=== PATIENT | female | born 1980 | race Caucasian/White ===

== ENCOUNTER 2019-03-01 06:52 | Emergency (ER) | payer OTHER ==
[~2019-03-01] VITALS: Ht 165.1 cm; Wt 72.6 kg
[2019-03-01 07:13] LABS: ABSOLUTE BASOPHILS 0.1 thou/uL (0.0-0.2); ABSOLUTE EOSINOPHILS 0.2 thou/uL (0.0-0.7); ABSOLUTE LYMPHOCYTES 2.6 thou/uL (0.8-5.3); ABSOLUTE MONOCYTES 0.7 thou/uL (0.0-1.2); ABSOLUTE NEUTROPHILS 4.5 thou/uL (1.6-8.1); BASOPHILS 1.2 %; EOSINOPHILS 2.8 %; HEMATOCRIT 39.6 % (37.0-47.0); HEMOGLOBIN 13.2 gm/dL (12.0-15.0); LYMPHOCYTES 31.6 %; MCH 30.5 pg (26.0-34.0); MCHC 33.3 g/dL (28.0-37.0); MCV 91.7 fL (80.0-100.0); MONOCYTES 8.8 %; MPV 6.9 fl. (7.2-11.1); NUCLEATED RBCS 0 /100WBC; PLATELET COUNT* 350 thou/uL (150-400); POLYS 55.6 %; RBC 4.32 mil/uL (4.20-5.00); WBC 8.2 thou/uL (4.0-11.0)
[2019-03-01 07:24] LABS: ALBUMIN 3.1 g/dL (3.4-5.0); CALCIUM 8.3 mg/dL (8.5-10.1); CREATININE 0.8 mg/dL (0.6-1.3); TOTAL BILIRUBIN 0.2 mg/dL (<0.1-1.0); TOTAL PROTEIN 6.9 g/dL (6.4-8.2)
[2019-03-01 07:50] LABS: URINE BILIRUBIN NEGATIVE (Negative); URINE BLOOD 3+ (Negative); URINE CLARITY CLEAR; URINE COLOR YELLOW; URINE GLUCOSE-RANDOM NEGATIVE (Negative); URINE KETONES NEGATIVE (Negative); URINE LEUKOCYTES-REFLEX TRACE (Negative); URINE NITRITE-REFLEX NEGATIVE (Negative); URINE PROTEIN NEGATIVE (Negative); URINE SPECIFIC GRAVITY <= 1.005 (1.005-1.030); URINE UROBILINOGEN 0.2 E.U./dl (0.2-1.0)
[2019-03-01 07:57] LABS: SQUAMOUS >10 Many /LPF (0-3)
[2019-03-01 07:59] LABS: URINE WBC-REFLEX 0-5 Rare /HPF (0-5)
[2019-03-01 08:00] LABS: URINE RBC 3-10 Few /HPF (0-2)
[2019-03-01 08:01] LABS: BACTERIA-REFLEX 1-9 Few /HPF (None Seen); CASTS None Seen /LPF (None Seen); MUCUS 4-6 Moderate strn/LPF (None Seen)
[2019-03-01 08:02] LABS: CRYSTALS None Seen /LPF (None Seen)
[2019-03-01] MEDS ORDERED: ZOFRAN ODT4 MG DISSOLVE (10:03)
[2019-03-01] MEDS ORDERED: NORCO 5-325 TA1 EAC1 PO (10:03)
[2019-03-01] MEDS ORDERED: IBUPROFEN 800800 M1 PO (10:03)
[2019-03-01 10:13] VITALS: BP 95/58
== END 2019-03-01 10:14 | disposition home or self-care (01) ==
LOC: M.ERS 06:52
PROVIDERS: Emergency Medicine Emergency Medical Services
DX: R10.84 Generalized abdominal pain (principal); F17.210 Nicotine dependence, cigarettes, uncomplicated; Z90.49 Acquired absence of other specified parts of digestive tract

== ENCOUNTER 2019-03-16 16:29 | Emergency (ER) | payer OTHER ==
[~2019-03-16] VITALS: Ht 167.6 cm; Wt 72.6 kg
[~2019-03-16 16:29] MED LIST: IBUPROFEN 800800 M1 PO; NORCO 5-325 TA1 EAC1 PO; ZOFRAN ODT4 MG DISSOLVE
[2019-03-16] MEDS ORDERED: CIPROFLOXIN HC2.5 M1 OTIC (17:10)
[2019-03-16 17:29] VITALS: BP 148/93
== END 2019-03-16 17:29 | disposition home or self-care (01) ==
LOC: M.ERS 16:29
DX: H18.821 Corneal disorder due to contact lens, right eye (principal); Z90.49 Acquired absence of other specified parts of digestive tract

== ENCOUNTER 2019-06-09 10:35 | Emergency (ER) | payer OTHER ==
[~2019-06-09] VITALS: Ht 167.6 cm; Wt 77.1 kg
[~2019-06-09 10:35] MED LIST changes: +CIPROFLOXIN HC2.5 M1 OTIC
[2019-06-09] MEDS ORDERED: TESSALON PERLE100 MG PO (11:38)
[2019-06-09] MEDS ORDERED: PROMETHAZI6.25 MG/5 PO (11:38)
[2019-06-09] MEDS ORDERED: TYLENOL WITH CO1 TA1 PO (11:38)
[2019-06-09] MEDS ORDERED: AMOXICILLIN 50500 M1 PO (11:38)
[2019-06-09 11:48] VITALS: BP 135/78
[2019-06-09 11:56] LABS: INFLUENZA A ANTIGEN Negative (Negative); INFLUENZA B ANTIGEN Negative (Negative)
== END 2019-06-09 11:50 | disposition home or self-care (01) ==
LOC: M.ERS 10:35
PROVIDERS: Physician Assistant
DX: J02.9 Acute pharyngitis, unspecified (principal); Z90.49 Acquired absence of other specified parts of digestive tract